=== PATIENT | female | born 1955 | race Hispanic/Latino ===

== ENCOUNTER 2019-06-08 10:12 | Emergency (ER) | payer SELFPAY ==
[2019-06-08] MEDS ORDERED: cefTRIAXone\\ROCEPHIN 1 GM VIAL ONE (11:26)
[2019-06-08] MEDS ORDERED: Lidocaine 1% PF 5 ML VIAL ONE (11:28)
[2019-06-08] MEDS ORDERED: cefTRIAXone\\ROCEPHIN 1 GM VIAL IM SCH (11:30)
== END 2019-06-08 11:53 | disposition home or self-care (01) ==
LOC: ERS 10:12
DX: L03.319 Cellulitis of trunk, unspecified (principal); I10 Essential (primary) hypertension; Z79.899 Other long term (current) drug therapy
CPT/HCPCS: 96372; 99283; J0696; J2001